=== PATIENT | male | born 1965 | race African-American/Black ===

== ENCOUNTER 2017-09-04 16:15 | Emergency (ER) | payer OTHER ==
[~2017-09-04] VITALS: Ht 175.3 cm; Wt 83.9 kg
[2017-09-04] MEDS ORDERED: NAPROSYN500 MG PO (17:52)
[2017-09-04 18:04] VITALS: BP 153/93
== END 2017-09-04 18:25 | disposition home or self-care (01) ==
LOC: EDBD 16:15 → EME 16:15
DX: G89.29 Other chronic pain (principal); M25.562 Pain in left knee; F17.200 Nicotine dependence, unspecified, uncomplicated
CPT/HCPCS: 73564; 99281; 99283